=== PATIENT | female | born 1965 | race Hispanic/Latino ===

== ENCOUNTER → 2016-09-25 | Outpatient (CLI) | payer OTHER ==
[~2016-09-25] MED LIST: ALBU83IN INH; ALPR0.5T3 PO; CURCPOW XX; OMEG100011 PO; VITA400C97 PO; VITA500C24 PO
--- NOTE | 2016-09-25 10:11 | REPMRS ---
Patient History The patient states she had a clinical breast exam in 09/2016. No known family history of cancer. Digital Woman Screen Mammo: September 25, 2016 - Exam #: [id number] Bilateral CC and MLO view(s) were taken. Technologist: Pinky Rob, Technologist FINDINGS: The breast tissue is heterogeneously dense. This may lower the sensitivity of mammography. There is no evidence of cancer on this mammogram. ASSESSMENT: BI-RADS/ACR category 2 mammogram. Benign finding(s). Recommendation Routine screening mammogram of both breasts in 1 year (for women over age 40). This mammogram was interpreted with the aid of an FDA-approved computer-aided dectection system. Electronically Signed By: Jaxon Garcia MD 09/25/16 1013
== END ==
LOC: M WHC 08:00
PROVIDERS: ATTEND Nurse Practitioner Women's Health
DX: Z12.31 Encounter for screening mammogram for malignant neoplasm of breast (principal)

== ENCOUNTER → 2016-09-25 | Outpatient (REF) | payer OTHER | LOC: M SFHCWAGY 08:37 | PROVIDERS: ATTEND Nurse Practitioner Women's Health | DX: Z12.4 Encounter for screening for malignant neoplasm of cervix (principal); Z12.31 Encounter for screening mammogram for malignant neoplasm of breast ==

== ENCOUNTER 2016-10-01 11:54 | Outpatient (CLI) | payer OTHER ==
[~2016-10-01] VITALS: Ht 160 cm; Wt 52.2 kg
[2016-10-01] MEDS ORDERED: PROPOFOL 200 MG/20 ML VIAL As Ordered ONE (14:29)
[2016-10-01] MEDS ORDERED: NS 1,000 ML IV ONE (14:45)
[2016-10-01 15:05] VITALS: BP 111/66
== END 2016-10-01 15:05 | disposition home or self-care (01) ==
LOC: M OPP 11:54
PROVIDERS: ATTEND Internal Medicine Gastroenterology
DX: Z12.11 Encounter for screening for malignant neoplasm of colon (principal); K64.8 Other hemorrhoids; F41.9 Anxiety disorder, unspecified; J45.909 Unspecified asthma, uncomplicated; Z79.899 Other long term (current) drug therapy